=== PATIENT | female | born 1980 | race Two or more races ===

== ENCOUNTER 2024-02-07 11:30 | Emergency (ER) | payer OTHER ==
[~2024-02-07] VITALS: Ht 172.7 cm; Wt 81.6 kg
[~2024-02-07 11:30] MED LIST: ALLEGRA-D1 TAB.SR .; AVELOX ABC PAC400 MG; BACTROBAN22 GM
[2024-02-07] MEDS ORDERED: METHYLPREDNISOLONE SOD SUCC 125 MG VIAL IV ONE (12:30)
[2024-02-07] MEDS ORDERED: KETOROLAC TROMETHAMINE 30 MG VIAL IV ONE (12:30)
[2024-02-07] MEDS ORDERED: GUAIFENESIN/DEXTROMETHORPHAN 10ML BLIST.PACK PO ONE ×2 (13:00→13:04)
[2024-02-07] MEDS ORDERED: KETOROLAC TROMETHAMINE 30 MG VIAL ONE (13:04)
[2024-02-07] MEDS ORDERED: METHYLPREDNISOLONE SOD SUCC 125 MG VIAL ONE (13:04)
[2024-02-07] MEDS ORDERED: ZITHROMAX500 MG PO (14:31)
[2024-02-07] MEDS ORDERED: TUSNEL LIQUID178 ML PO (14:31)
[2024-02-07] MEDS ORDERED: MEDROLPACK PO (14:31)
[2024-02-07] MEDS ORDERED: PROAIR RESPICL90 MCG IH (14:31)
== END 2024-02-07 14:41 | disposition home or self-care (01) ==
LOC: ER 11:32
DX: R07.89 Other chest pain (principal); R10.9 Unspecified abdominal pain; Z91.013 Allergy to seafood; Z91.041 Radiographic dye allergy status